=== PATIENT | male | born 1935 | race Caucasian/White ===

== ENCOUNTER 2020-02-24 12:51 | Outpatient (REF) | payer MEDICARE, SELFPAY ==
--- NOTE | 2020-02-24 | MR_ITS ---
EXAMINATION: MR BRAIN WITHOUT CONTRAST CLINICAL INFORMATION: Gait disorder. COMPARISON: None. TECHNIQUE: Multiplanar, multisequence imaging of the brain was performed without contrast. FINDINGS: No diffusion abnormalities are identified to suggest an acute infarct. There is concordant ex vacuo dilatation of the ventricles relative to the sulcal spaces without evidence of hydrocephalus. No mass effect or midline shift is seen. Mild chronic white matter microangiopathic changes noted with moderate diffuse parenchymal volume loss. No extra-axial fluid collections are seen. The brainstem is normal. 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 The gradient refocused acquisition demonstrates no pathologic magnetic susceptibility artifact to indicate underlying acute or chronic blood products. The craniovertebral junction and marrow signal are normal. 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 The major intracranial flow voids at the level of the [place] of [place] are preserved. The dural venous sinus flow voids are maintained. The mastoid air cells and paranasal sinuses are well aerated. MR/MR head/brain wo con IMPRESSION: No acute intracranial process. Generalized parenchymal volume loss and mild chronic white matter microangiopathy.
== END 2020-02-24 12:52 | disposition home or self-care (01) ==
LOC: HO.MRI 12:51
PROVIDERS: Visit Provider Psychiatry & Neurology Neurology
DX: R26.9 Unspecified abnormalities of gait and mobility (principal)
CPT/HCPCS: 70551